=== PATIENT | female | born 1945 | race African-American/Black ===

== ENCOUNTER 2020-07-11 14:53 | Inpatient (IN) | payer MEDICARE, MEDICAID, OTHER ==
[~2020-07-11 14:53] MED LIST: Iopamidol-370 76% 500 ML 1 ML ONE
[2020-07-11] MEDS ORDERED: Ondansetron PF 4 MG/2 ML Vial ONE (15:01)
[2020-07-11] MEDS ORDERED: Haloperidol Lactate 5 MG/ML VIAL ONE (15:01)
--- NOTE | 2020-07-11 15:23 | CT ---
Exam: Head CT without contrast HISTORY: Level 2 stroke. Altered mental status. COMPARISON: 09/14/2013 FINDINGS: Hemorrhage: No intraparenchymal hemorrhage or extra-axial hematoma. Brain parenchyma: Cortical zhang-white matter differentiation is preserved. No mass effect or midline shift. Basilar cisterns are patent. Ventricular system: Ventricles and sulci are patent and symmetric. Calvarium: Intact. Sinuses and mastoid air cells: Adequate aeration. IMPRESSION: 1. No acute intracranial process 2. Results study discussed with Dr. Garcia 07/11/2020 3:19 PM Code CR
[2020-07-11 15:43] LABS: #Basophils 0.1 thou/uL (0.0-0.2); #Eosinphils 0.4 thou/uL (0.0-0.7); #Lymphocytes 3.2 thou/uL (1.20-3.40); #Monocytes 1.8 thou/uL (0.11-0.59); #Neutrophils 8.5 thou/uL (1.40-6.50); %Basophils 0.7 % (0.0-1.0); %Eosinophils 2.9 % (0.0-10.0); %Lymphocytes 22.7 % (21.0-51.0); %Neutrophils 60.6 % (42.0-75.0); Hemoglobin 10.5 g/dL (12.0-16.0); Mean Corpuscular HGB CONC 32.4 g/dL (32.0-36.0); Mean Corpuscular Hemoglobin 36.7 pg (27.0-31.0); Platelet Count 334 thou/uL (130-400); RBC Distribution Width 14.4 % (11.5-14.5); Red Blood Cell (RBC) Count 2.86 mill/uL (4.20-5.40); White Blood Cell (WBC) Count 14.1 thou/uL (4.8-10.8)
--- NOTE | 2020-07-11 15:54 | CT ---
CT arteriogram neck with IV contrast and 3-D imaging CT arteriogram head with IV contrast and 3-D imaging HISTORY: Altered mental status. FINDINGS: Contrast opacification of the aortic arch with bovine origin of the great vessels. Subclavi an arteries are patent. Good flow into each carotid system and the right vertebral artery. Left vertebral artery is not opacified, possibly chronic occlusion. There is calcification at each carotid bifurcation. Internal carotid arteries are patent. Incidental note of high-grade stenosis at the origin of the left external carotid artery. Each internal carotid artery is very tortuous. There is prominent calcification at each carotid sipho n intracranially with moderate to high-grade stenosis. Slight irregularity and slightly low grade stenosis of the right M1 segment. Cervical of [place] is intact. Persistent origin of the left posterior cerebral artery. Good dari w into each cerebral and cerebellar system. No enhancing brain lesions are evident. IMPRESSION : Atherosclerosis. No acute vascular abnormalities are demonstrated. 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 Incidental note of short segment high-grade stenosis at the origin of the left external carotid arter y.
[2020-07-11 16:10] LABS: Bacteria/HPF None Seen HPF (None Seen); Bilirubin Negative (Negative); Blood, Urine Trace (Negative); Clarity Clear (Clear); Glucose, Urine (Dipstick) Normal (Negative); Ketone, Urine Negative (Negative); Leukocyte Negative Leu/uL (Negative); Nitrite Negative (Negative); Protein, Urine (Dipstick) 50 mg/dL (Neg-Trace); RBC/HPF 0-3 HPF (0-3); Specific Gravity, Urine 1.009 (1.002-1.036); Urobilinogen Normal mg/dL (Less than 2); WBC/HPF 0-3 HPF (0-3)
[2020-07-11 16:18] LABS: INR-International Normal Ratio 1.1; PTT 29.2 sec (22.9-36.1); Prothrombin Time 14.1 sec (12.0-14.7)
[2020-07-11] MEDS ORDERED: Cefepime 2 GM VIAL ONE (16:21)
[2020-07-11] MEDS ORDERED: Sodium Chloride 0.9% 100 ML ONE (16:21)
[2020-07-11 16:23] LABS: MDiff Complete? YES; Macrocytosis SLIGHT = 6-15 cells (100X) (0-5/hpf); Platelet Morphology Comment Appears Adequate; Polychromasia SLIGHT = 2-3 cells (100X) (0-2/hpf); Target Cells SLIGHT = 2-5 cells (100X) (0-1/hpf)
[2020-07-11 16:27] LABS: ALT (SGPT) 14 U/L (8-55); AST (SGOT) 16 U/L (5-34); Albumin 3.9 g/dL (3.4-4.8); Alkaline Phosphatase 79 U/L (40-110); Anion Gap 24 mmol/L (10-20); BUN (Urea Nitrogen) 31 mg/dL (9.8-20.1); Bilirubin, Total 0.5 mg/dL (0.2-1.2); Calc. Creatinine Clearance 0 mL/min (70-130); Calcium 8.7 mg/dL (7.8-10.44); Carbon Dioxide 22 mmol/L (23-31); Chloride 91 mmol/L (98-107); Estimated GFR-MDRD 5; Globulin 3.7 g/dL (2.4-3.5); Glucose 131 mg/dL (83-110); Potassium 5.8 mmol/L (3.5-5.1); Protein, Total 7.6 g/dL (6.0-8.3); Sodium 131 mmol/L (136-145)
--- NOTE | 2020-07-11 16:42 | RAD ---
EXAM: CHEST ONE VIEW HISTORY: Altered mental status. Combative COMPARISON: 05/07/2019. FINDINGS: Cardiac silhouette is magnified by projection but does appear enlarged. There is increased bibasilar and perihilar airspace opacities which may reflect bilateral pneumonia or less likely asymmetric pulmonary edema. No pleural fluid is seen. Vascular calcifications are again seen in an ectatic thora cic aorta. IMPRESSION: Bilateral perihilar as well as bibasilar airspace opacities worrisome for bilateral pneumonia. Asymme tric pulmonary edema is a possibility. Follow-up to complete resolution is recommended.
[2020-07-11 16:51] LABS: CKMB 3.4 ng/mL (0-6.6)
[2020-07-11] MEDS ORDERED: Aspirin 300 MG Suppository ONE (17:38)
--- NOTE | 2020-07-11 17:45 | PDOC.HHP ---
Hospitalist HPI - History of Present Illness AMS History of Present Illness: This is a 75-year-old female patient with a history of hypertension, diabetes mellitus, ESRD on Friday schedule who presents today with altered mental status along with seizure-like activity. At the time of my assessment patient was outsidehistory was taken from her daughter who was at the bedside. Patient was in her usual state of health when a day ago she started complaining of headache. Headaches persisted till this morning when later in the morning she started behaving erratically and started having jerking movements that resembles generalized seizure. Behavior was erratic with confusion and EMS was activated leading to the ED visit. Due to agitation and also received Haldol, Ativan, and morphine making her drowsy. At presentation she was hypotensive with BP in the 1 9200s, tachypneic at 22 ho aths/min and tachycardic with heart rates between 99 and 104. Initial labs showed a leukocytosis of 14.1, hemoglobin 10.2, sodium 131, potassium 5.2 creatinine 8.26, BUN 31 with an anion gap of 18. Initial lactate was 3.4 with a repeat increasing to 4.8. Troponin was initially elevated at 0.035 with repeat troponin at 0.087. Imaging showed chest x-ray with bilateral perihilar as well as basilar airspace opacities worrisome for bilateral pneumonia. To rule out asymmetric edema. CT scan of the brain showed no acute intracranial events, CT angiogram [place] of [place] with contrast showed no acute vascular abnormalities however had chronic irritation of the left vertebral artery and incidental left external carotid artery segmental stenosis. She was started on vancomycin and cefepime. She also received a liter of normal saline. Hospitalist team was consulted for admission. Hospitalist ROS - Review of Systems ROS unobtainable: due to endotracheal tube Hospitalist History - Past Medical History Cardiac: reports: HTN Renal/: reports: Other (ESRD) Endocrine: reports: Diabetes - Past Surgical History Past Surgical History: reports: Cholecystectomy, - Family History Family History: reports: diabetes mellitus - Social History Smoking Status: Never smoker - Exam General - other findings: Patient in bed, in deep slumber Neck - other findings: VD, no neck stiffness Heart: no murmur, no gallops, no rubs Heart - other findings: Tachycardic Respiratory - other findings: Bilateral coarse breath sounds Gastrointestinal: soft, non-tender, non-distended, normal bowel sounds Extremities - other findings: Graft site not inflamed. Neurological - other findings: Patient drowsy. Pupils reactive bilaterally, moves all extremities Psychiatric - other findings: Patient drowsy but arousable Hospitalist Results - Labs Result Diagrams: 07/11/20 15:20 07/11/20 15:59 Lab results: WBC 14.1 thou/uL (4.8-10.8) H 07/11/20 15:20 Hgb 10.5 g/dL (12.0-16.0) L 07/11/20 15:20 Hct 32.5 % (36.0-47.0) L 07/11/20 15:20 MCV 113.0 fL (78.0-98.0) H 07/11/20 15:20 Plt Count 334 thou/uL (130-400) 07/11/20 15:20 Neutrophils % 60.6 % (42.0-75.0) 07/11/20 15:20 Sodium 131 mmol/L (136-145) L 07/11/20 15:59 Potassium 5.8 mmol/L (3.5-5.1) H 07/11/20 15:59 Chloride 91 mmol/L (98-107) L 07/11/20 15:59 Carbon Dioxide 22 mmol/L (23-31) L 07/11/20 15:59 BUN 31 mg/dL (9.8-20.1) H 07/11/20 15:59 Creatinine 8.26 mg/dL (0.6-1.1) H 07/11/20 15:59 Glucose 131 mg/dL (83-110) H 07/11/20 15:59 Lactic Acid 3.4 mmol/L (0.5-2.2) H 07/11/20 15:59 Calcium 8.7 mg/dL (7.8-10.44) 07/11/20 15:59 Total Bilirubin 0.5 mg/dL (0.2-1.2) 07/11/20 15:59 AST 16 U/L (5-34) 07/11/20 15:59 ALT 14 U/L (8-55) 07/11/20 15:59 Alkaline Phosphatase 79 U/L (40-110) 07/11/20 15:59 CK-MB (CK-2) 3.4 ng/mL (0-6.6) 07/11/20 15:59 Troponin I 0.035 ng/mL (< 0.028) H 07/11/20 15:59 Serum Total Protein 7.6 g/dL (6.0-8.3) 07/11/20 15:59 Albumin 3.9 g/dL (3.4-4.8) 07/11/20 15:59 Urine Ketones Negative mg/dL (Negative) 07/11/20 15:57 Urine Blood Trace (Negative) A 07/11/20 15:57 Urine Nitrite Negative (Negative) 07/11/20 15:57 Ur Leukocyte Esterase Negative Jeniffer/uL (Negative) 07/11/20 15:57 Urine RBC 0-3 HPF (0-3) 07/11/20 15:57 Urine WBC 0-3 HPF (0-3) 07/11/20 15:57 Ur Squamous Epith Cells 4-6 HPF (0-3) A 07/11/20 15:57 Urine Bacteria None Seen HPF (None Seen) 07/11/20 15:57 Hospitalist H&P A/P - Plan Plan: This is a 75-year-old female patient with a history of hypertension, diabetes mellitus, ESRD on dialysis who presents today with initial headaches and subsequent seizure-like activity and altered mental status. Currently being managed for sepsis and will be admitted to MICU for close observation. Severe sepsis Elevated lactate, leukocytosis, tachycardia, altered mental status Source being likely lungs however cannot rule out meningitisI have asked neck stiffness and obvious infiltrates in the lungs to explain his sepsis. She received a liter of normal saline Given the ESRD will limit fluid replacement as her blood pressures are also high in the 180 systolic. She received vancomycin and cefepime and also Levaquin. We will continue antibiotics on vancomycin and Zosyn with azithromycin for atypical organism coverage. Trend lactate Follow-up on culture Acute encephalopathy Likely related to sepsis/seizure Less likely meningitis however cannot be ruled out Currently, will monitor Neurology consulted Bilateral pneumonia Aspiration pneumonia/community-acquired pneumonia. Will provide vancomycin and Zosyn and azithromycin for now Reevaluate antibiotic coverage in a.m. Hypertensive urgency Receiving clonidine patch for now We will monitor blood pressure closely MICU Nephrology on board Elevated troponin Received aspirin 300 and nitroglycerin in ED Likely related to ESRD We will trend ESRD On Friday dialysis Nephrology consultedlikely dialysis in a.m. Left external carotid/vertebral artery occlusions Stable VT prophylaxisHeparin CODE STATUSfull code Dispositionpending improvement
[2020-07-11 18:34] LABS: SARS-CoV-2 NAA Rapid Test Not Detected (NotDetected)
[2020-07-11] MEDS ORDERED: Piperacillin/Tazobactam 4.5 GM in Sodium Chloride 0.9% 100 ML IVPB SCH (19:00)
[2020-07-11] MEDS ORDERED: Azithromycin 500 MG in Sodium Chloride 0.9% 250 ML 250 ML IVPB SCH (19:00)
[2020-07-11 19:44] LABS: Lactic Acid 4.8 mmol/L (0.5-2.2)
[2020-07-11 20:00] LABS: Troponin I 0.087 ng/mL (< 0.028)
[2020-07-11 20:35] LABS: Actual Bicarbonate (HCO3a) 22.6 mEq/L (22-28); Analyzer IN Cardio ER; Base Excess (BEa) -1.9 mEq/L (-2.0 to +3.0); CO2 Tension 37.8 mmHg (35.0-45.0); Calcium, Ionized (arterial) 1.02 mmol/L (1.12-1.30); Carboxyhemoglobin (COHb) 0.4 gm% (0.0-3.0); Hemoglobin (Hb) 10.9 g/dL (12.0-16.0); O2 Tension (PaO2), arterial 94.4 mmHg (> 70.0); Potassium - ABG Lab 6.62 mmol/L (3.70-5.30)
[2020-07-11 20:37] LABS: Puncture Site RRA
[2020-07-11] MEDS ORDERED: cloNIDine 0.1mg/24 Hour PATCH TD SCH (21:00)
[2020-07-11] MEDS ORDERED: Heparin 5,000 UNITS/ML VIAL SC SCH (21:00)
[2020-07-11] MEDS: Nitroglycerin 2% Ointment 1 INCH/1 GM Packet TOP SCH (21:55)
[2020-07-11 23:36] LABS: Troponin I 0.188 ng/mL (< 0.028)
[2020-07-12] MEDS ORDERED: HOLD VANCOMYCIN FOR LEVEL >20 FS SCH (00:45)
[2020-07-12] MEDS ORDERED: Vancomycin HCl 1.5 GM in Sodium Chloride 0.9% 250 ML 300 ML IVPB SCH (00:45)
[2020-07-12] MEDS ORDERED: Vancomycin 1 GM in Premix Bag 1 BAG IVPB SCH (00:45)
[2020-07-12] MEDS ORDERED: Vancomycin HCl 1.25 GM in Sodium Chloride 0.9% 250 ML 250 ML IVPB SCH ×2 (00:45→05:00)
[2020-07-12] MEDS ORDERED: Piperacillin/Tazobactam 1.125 GM, Admixture Fee 1 EACH in Sodium Chloride 0.9% 100 ML IVPB SCH (00:45)
[2020-07-12] MEDS ORDERED: Vancomycin HCl 750 MG in Sodium Chloride 0.9% 250 ML 250 ML IVPB SCH (00:45)
[2020-07-12 01:58] LABS: Hemoglobin 9.7 g/dL (12.0-16.0); Platelet Count 317 thou/uL (130-400)
[2020-07-12] MEDS: Heparin 10,000 UNITS/ 10 ML VIAL SLOW IVP SCH ×2 (02:38→18:12)
[2020-07-12] MEDS: Heparin 25,000 units/D5W 500 ML IVPB SCH (02:41)
[2020-07-12] MEDS ORDERED: Haloperidol Lactate 5 MG/ML VIAL ONE (05:16)
[2020-07-12] MEDS ORDERED: Haloperidol Lactate 5 MG/ML VIAL IM SCH (05:30)
[2020-07-12] MEDS ORDERED: Epoetin (ESRD) 20,000 UNITS/ML SC SCH (09:00)
[2020-07-12 09:15] LABS: PTT 127.6 sec (22.9-36.1)
[2020-07-12 09:19] LABS: Anion Gap 21 mmol/L (10-20); BUN (Urea Nitrogen) 39 mg/dL (9.8-20.1); Calc. Creatinine Clearance 9 mL/min (70-130); Carbon Dioxide 22 mmol/L (23-31); Chloride 97 mmol/L (98-107); Estimated GFR-MDRD 5; Glucose 106 mg/dL (83-110); Potassium 6.4 mmol/L (3.5-5.1); Sodium 134 mmol/L (136-145)
--- NOTE | 2020-07-12 09:56 | CON ---
DATE OF CONSULTATION: 07/12/20 HISTORY OF PRESENT ILLNESS: Ms. Magaña is a 75-year-old black female with ESRD from diabetic nephropathy, admitted for mental status change. It was felt that she may be septic. She was also noted to be having labile hypertension last night. For that reason, she was started on transdermal clonidine. CAT scan of the head did not show any acute intracranial abnormality and in addition CT angiogram of the [place] of [place] with contrast showed also no acute abnormality. This morning, patient is less confused. She is undergoing hemodialysis. We are following up this patient for her maintenance hemodialysis as well as management of her ESRD. REVIEW OF SYSTEMS: Positive for confusion? Of fever. No nausea. No vomiting. No diarrhea. No productive cough. No dysuria. No abdominal pain. Appetite and energy level is decreased. Occasional joint pains. No abdominal pain. No syncopal episode. MEDICATIONS: Currently on 1. Azithromycin 500 mg IV daily. 2. Clonidine patch TTS one daily. 3. Haloperidol 2 mg p.r.n. 4. Heparin drip. 5. Nitroglycerin 2 inches topical twice a day. 6. Zosyn 2.25 g IV q.12 hours, status post vancomycin. 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 PAST SURGICAL HISTORY: Status post AV fistula placement, status post open cholecystectomy, status post thyroidectomy, status post cuffed hemodialysis catheter placement. SOCIAL HISTORY: The patient lives in [place]. She lives with her daughter. 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 Smoked for 15 years, 2 packs a day. Quit 32 years ago. Status post blood transfusion. No drug abuse. Alcohol, none. Education, high school. ALLERGIES: CODEINE. TRAUMA: None. IMMUNIZATIONS: Up to date. HOSPITALIZATION: Please see past medical history. FAMILY HISTORY: No family history of ESRD. PHYSICAL EXAMINATION: VITAL SIGNS: Blood pressure is noted at 177/93, heart rate 104, respiratory rate 26, O2 saturation 100%, and temperature 98.4. GENERAL: The patient is awake, somewhat lethargic, but not in overt distress. SKIN: Adequate turgor. HEENT: She has slightly pale conjunctivae. Anicteric sclerae. NECK: No neck mass. No carotid bruits. No JVD. CHEST: No deformities. LUNGS: Clear breath sounds. No wheezing. No crackles. HEART: Normal sinus rhythm. No murmurs, gallops, or rubs. ABDOMEN: Globular, soft, nontender, no masses. EXTREMITIES: No edema, no deformities. LABORATORY DATA: July 12, 2020, hemoglobin 9.7, hematocrit 29.2. K - 6.4 July 11, 2020, white count 14.1, hemoglobin 10.5. July 11, 2020, sodium 131, potassium 5.8, chloride 91, carbon dioxide 22, BUN 31, creatinine 8.26, glucose 131, calcium 8.7. AST 16, ALT 14. Lactic acid 4.8. CT scan of the brain, no acute intracranial abnormality. July 11, 2020, chest x-ray shows bilateral perihilar airspace opacities suggestive of pneumonia. ASSESSMENT AND PLAN: 1. Sepsis/pneumonia-currently on empiric IV antibiotics. Continue supportive care. 2. July 11, 2020, urine C and S, no growth to date. 3. Endstage renal disease. Currently undergoing hemodialysis due to missed hemodialysis yesterday. We will be continuing current hemodialysis regimen with this patient on a Friday, Friday, and Friday dialysis schedule. Fluid removal only as tolerated by the patient. 4. Anemia. Start Epogen 7500 units subcu q. week. Agree with current management. 5. Hyperkalemia - hemodialysis today Job ID: [id number] MTDD
[2020-07-12] MEDS: Nitroglycerin 2% Ointment 1 INCH/1 GM Packet TOP SCH ×2 (10:54→20:50)
[2020-07-12] MEDS: Piperacillin/Tazobactam 2.25 GM in Sodium Chloride 0.9% 100 ML IVPB SCH ×2 (10:54→20:49)
[2020-07-12] MEDS ORDERED: EPOETIN ALFA-EPBX (ESRD) 4,000 UNIT/ML VIAL SC SCH (12:00)
[2020-07-12] MEDS: Acetaminophen 325 MG TAB PO PRN ×2 (12:17→21:30)
--- NOTE | 2020-07-12 13:13 | CON ---
NEUROLOGY CONSULTATION DATE OF CONSULTATION: 07/12/2020 REASON FOR CONSULTATION: Altered mental status. HISTORY OF PRESENT ILLNESS: Ms. Michelle Magaña is a 75-year-old female with history significant for hypertension, diabetes, end-stage renal disease on hemodialysis presented on 07/11/2020 with an episode of altered mental status with shaking and seizure-like activity, where the history is taken from the patient's daughter who is at the bedside. Per daughter, she was going to her regular appointment for dialysis and all of a sudden she complained of headache and then started behaving extremely confused and combative. She does have some generalized jerking movements of the extremities with no tongue bite or urinary incontinence. She became extremely combative and agitated and when the EMS arrived she was given Haldol, Ativan and morphine to make her drowsy to transfer her to the stretcher. She was also found to be hypertensive with systolic blood pressure in 200s and tachycardic. Head CT was done in the emergency room, which did not reveal any acute intracranial pathology. A CT angiogram did not reveal any hemodynamically significant stenosis. Chest x-ray shows bilateral perihilar as well as basilar opacity concern of pneumonia, so she was started on antibiotics and admitted for further evaluation. The daughter did not witness any focal weakness, focal paresthesias, nausea, vomiting, chest pain, abdominal pain, vertigo, dizziness, loss of vision or loss of consciousness associated with the episode. She has no history of seizures. No family history of seizures. She does have history of [place] 20 years ago REVIEW OF SYSTEMS:. All 14 systems were reviewed with the daughter and negative except the pertinent positive and negative mentioned in the HPI. PAST MEDICAL HISTORY: Hypertension, end-stage renal disease, diabetes mellitus. PAST SURGICAL HISTORY: Cholecystectomy, section. SOCIAL HISTORY: The patient denies smoking, alcohol, illegal drug use. PHYSICAL EXAMINATION: 148/84 18 20 GENERAL: NAD. NECK: Supple. CVS: Regular rate and rhythm. CHEST: Clear. ABDOMEN: Soft. NEUROLOGICAL: Mental status, the patient is alert and oriented to person and place. She is on dialysis. She is not oriented to the month and the year. Speech is clear. Motor, muscle, tone and bulk are normal. Moving all 4 extremities equally and symmetrically. Sensory withdraws to nailbed pressure bilaterally. Cerebellar did not cooperate with the testing. Gait deferred due to patient's safety reason. Cranial nerves II through XII intact. DATA REVIEWED: I reviewed the labs which were significant for white count of 14.1, and anemia with hemoglobin 10.5, hematocrit 32.5, and hyponatremia with sodium 131 and chronic renal insufficiency with BUN of 31 and creatinine of 8.26. Lab results: WBC 14.1 thou/uL (4.8-10.8) H 07/11/20 15:20 Hgb 10.5 g/dL (12.0-16.0) L 07/11/20 15:20 Hct 32.5 % (36.0-47.0) L 07/11/20 15:20 MCV 113.0 fL (78.0-98.0) H 07/11/20 15:20 Plt Count 334 thou/uL (130-400) 07/11/20 15:20 Neutrophils % 60.6 % (42.0-75.0) 07/11/20 15:20 Sodium 131 mmol/L (136-145) L 07/11/20 15:59 Potassium 5.8 mmol/L (3.5-5.1) H 07/11/20 15:59 Chloride 91 mmol/L (98-107) L 07/11/20 15:59 Carbon Dioxide 22 mmol/L (23-31) L 07/11/20 15:59 BUN 31 mg/dL (9.8-20.1) H 07/11/20 15:59 Creatinine 8.26 mg/dL (0.6-1.1) H 07/11/20 15:59 Glucose 131 mg/dL (83-110) H 07/11/20 15:59 Lactic Acid 3.4 mmol/L (0.5-2.2) H 07/11/20 15:59 Calcium 8.7 mg/dL (7.8-10.44) 07/11/20 15:59 Total Bilirubin 0.5 mg/dL (0.2-1.2) 07/11/20 15:59 AST 16 U/L (5-34) 07/11/20 15:59 ALT 14 U/L (8-55) 07/11/20 15:59 Alkaline Phosphatase 79 U/L (40-110) 07/11/20 15:59 CK-MB (CK-2) 3.4 ng/mL (0-6.6) 07/11/20 15:59 Troponin I 0.035 ng/mL (< 0.028) H 07/11/20 15:59 Serum Total Protein 7.6 g/dL (6.0-8.3) 07/11/20 15:59 Albumin 3.9 g/dL (3.4-4.8) 07/11/20 15:59 Urine Ketones Negative mg/dL (Negative) 07/11/20 15:57 Urine Blood Trace (Negative) A 07/11/20 15:57 Urine Nitrite Negative (Negative) 07/11/20 15:57 Ur Leukocyte Esterase Negative Jeniffer/uL (Negative) 07/11/20 15:57 Urine RBC 0-3 HPF (0-3) 07/11/20 15:57 Urine WBC 0-3 HPF (0-3) 07/11/20 15:57 Ur Squamous Epith Cells 4-6 HPF (0-3) A 07/11/20 15:57 Urine Bacteria None Seen HPF (None Seen) 07/11/20 15:57 IMAGING STUDIES: I reviewed the head CT, which was negative for acute intracranial pathology. I also reviewed the EEG, which was negative for underlying seizure activity. ASSESSMENT AND PLAN: Ms. Michelle Magaña is a 75-year-old female with history significant for hypertension, diabetes, end-stage renal disease, presented with intermittent headache and altered mental status. There is a concern about shaking, which looks like seizure-like activity, most likely a provoked seizure in the setting of infection. EEG was reviewed and was negative for seizure activity. A head CT did not reveal any acute intracranial process. Consider MRI of the brain to further evaluate for seizure focus. If above studies are negative, we will not start seizure medication based on above information. Neuro checks every 4 hours. Continue home medications. Continue medical management per primary team. Thank you for the consult. Job ID: [id number] MTDD
--- NOTE | 2020-07-12 13:58 | PDOC.HOSPP ---
- Subjective Encounter Date: 07/12/20 Encounter Time: 13:00 Subjective: Seen and examined in bed. She was noted to be quite combative overnight after ACT medications weaned. She got a repeat dose of Haldol and did restrained. Troponin trended upwards and she started on heparin drip She is having dialysis at the time of my evaluation. Also having EEG. She complains of headache, agitated and wants to be released from her restraints. - Objective Vital Signs & Weight: Vital Signs (12 hours) Temp Pulse Ox 07/12/20 08:00 98 07/12/20 07:35 98.4 F 07/12/20 04:00 99.8 F H Weight Admit Weight 227 lb Weight 227 lb 1 oz Most Recent Monitor Data Heart Rate from ECG 81 NIBP 146/84 NIBP BP-Mean 104 Respiration from ECG 16 SpO2 100 I&O: 07/11/20 07/12/20 07/13/20 06:59 06:59 06:59 Intake Total 170 Balance 170 Result Diagrams: 07/12/20 01:52 07/12/20 08:35 Additional Labs: Accuchecks 07/12/20 07/11/20 07/11/20 04:19 21:24 15:25 POC Glucose 105 H 105 H 105 H Hospitalist ROS - Medication Medications: Active Medications Generic Name Dose Route Start Last Admin Trade Name Freq PRN Reason Stop Dose Admin Acetaminophen 650 mg 07/12/20 11:15 07/12/20 12:17 Acetaminophen 325 Mg Tab PO 650 mg Q4H PRN Administration Headache/Fever or Pain Clonidine 0.1 mg 07/11/20 21:00 07/11/20 21:56 Clonidine 0.1mg/24 Hour Patch TD 0.1 mg Q7D BAL Administration Heparin Sodium (Porcine) 0 units 07/12/20 02:00 07/12/20 02:38 Heparin 10,000 Units/ 10 Ml Vial SLOW IVP 4,000 unit ASDIR BAL Administration Protocol Piperacillin Sod/Tazobactam 100 mls @ 200 mls/hr 07/12/20 09:00 07/12/20 10:54 Sod 2.25 gm/ Sodium Chloride IVPB 100 mls Q12HR BAL Administration Heparin Sodium/Dextrose 500 mls @ 0 mls/hr 07/12/20 02:00 07/12/20 02:41 Heparin 25,000 Units/D5w IVPB 500 mls INF BAL Administration Protocol Per Protocol Nitroglycerin 2 inch 07/11/20 21:00 07/12/20 10:54 Nitroglycerin 2% Ointment 1 Inch/1 Gm Packet TOP 2 inch BID BAL Administration - Exam General Appearance: ill appearing General - other findings: Ongoing dialysis and EEG. Heart - other findings: S1-S2 present and normal. No murmurs gallops or rubs. Respiratory - other findings: Coarse breath sounds bilaterally. Gastrointestinal - other findings: Full, soft, nontender bowel sounds present. Extremities - other findings: Trace edema bilaterally. Neurological: cranial nerve grossly intact, no focal deficits Psychiatric - other findings: Patient agitated Hosp A/P - Plan This is a 75-year-old female patient with a history of hypertension, diabetes mellitus, ESRD on dialysis who presents today with initial headaches and subsequent seizure-like activity and altered mental status. Currently being managed for sepsis and will be admitted to MICU for close observation. Severe sepsis Lactic acid elevated now back to within normal range. No growth on blood or urine cultures at the moment. We will continue V[place], Zosyn and azithromycin to cover respiratory source. Continue close monitoring. Follow-up on cultures Acute encephalopathy Likely related to sepsis/seizure Less likely meningitis however cannot be ruled out Currently, will monitor PRN Haldol Neurology consulted Bilateral pneumonia Aspiration pneumonia/community-acquired pneumonia. Will provide vancomycin and Zosyn and azithromycin for now Given possibility of edema we will hold repeat chest x-ray after dialysis Reevaluate antibiotic coverage in a.m. Hypertensive urgency Improved systolic currently between 146 and 172 Receiving clonidine patch for now We will monitor blood pressure closely MICU Nephrology on board Elevated troponin Received aspirin 300 and nitroglycerin in ED Likely related to ESRD We will trend ESRD Currently receiving dialysis. Nephrology following Left external carotid/vertebral artery occlusions Stable VT prophylaxisHeparin CODE STATUSfull code Dispositionpending improvement
--- NOTE | 2020-07-12 15:51 | CT ---
CT arteriogram neck with IV contrast and 3-D imaging CT arteriogram head with IV contrast and 3-D imaging HISTORY: Altered mental status. FINDINGS: Contrast opacification of the aortic arch with bovine origin of the great vessels. Subclavi an arteries are patent. Good flow into each carotid system and the right vertebral artery. Left vertebral artery is not opacified, possibly chronic occlusion. There is calcification at each carotid bifurcation. Internal carotid arteries are patent. Incidental note of high-grade stenosis at the origin of the left external carotid artery. Each internal carotid artery is very tortuous. There is prominent calcification at each carotid sipho n intracranially with moderate to high-grade stenosis. Slight irregularity and slightly low grade stenosis of the right M1 segment. Cervical of [place] is intact. Persistent origin of the left posterior cerebral artery. Good dari w into each cerebral and cerebellar system. No enhancing brain lesions are evident. IMPRESSION : Atherosclerosis. No acute vascular abnormalities are demonstrated. 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 Incidental note of short segment high-grade stenosis at the origin of the left external carotid arter y. Transcribed Date/Time: 07/12/2020 3:51 PM
[2020-07-12] MEDS: Azithromycin 500 MG in Sodium Chloride 0.9% 250 ML 250 ML IVPB SCH (18:13)
--- NOTE | 2020-07-12 19:15 | CON ---
DATE OF CONSULTATION: 07/12/2020 INDICATION FOR CONSULTATION: This is an elderly 75-year-old female, who has been seen by Dr. Doll in the past, but usually is followed by Dr. Jeancarlos Anglin in [place]. She apparently was admitted after some mental status changes. We were asked to see her due to her history of congestive heart failure in the past. At this time, she does not end-stage renal disease, for which she is on hemodialysis three times a week. She apparently had been complaining of a headache, but had no complaints of chest pain or significant shortness of breath. HISTORY OF PRESENT ILLNESS: This is a very pleasant 75-year-old female, as noted above had complained of some headaches yesterday and was supposed to see her cable worker helper yesterday, but her niece was taking her to the doctor when she started acting very strange, then the niece called the daughter and then she was taken home and when she arrived home, the daughter says she was even more confused and she had some hard time getting her out of the car and then she developed nausea and vomiting, but mainly was complaining of headache. EMS came and the patient was given some Haldol due to her agitation and confusion and was brought to the emergency room. Her blood pressure was significantly elevated in the 200s and she also was tachycardic. She did have a CT scan done, which did not show any significant abnormalities or anything acute apparently. At this time, she is somewhat sedated, and daughter is in the room and answers most of the questions, but otherwise there were no other significant abnormalities that had been noted. She denied any chest pain according to the daughter, had otherwise been doing relatively well. She lives with her older sister. The patient actually does some of her own cooking and cleaning the house and things on just normal routine daily living activities. Otherwise, she has not had any recent cardiac issues and the daughter is unaware of any recent echocardiogram, but I believe one may have been performed today. PAST MEDICAL HISTORY: Significant for end-stage renal disease. She has been previously diagnosed with diabetes, but the daughter says she is no longer a diabetic and blood sugars do not appear to be significantly elevated. She has had a cholecystectomy. She has history of lumpectomy of the left breast with radiation therapy. She has had a . She has had dialysis catheters placed. She has a history of systolic as well as diastolic heart failure, chronic anemia. She has degenerative joint disease, history of gout, dyslipidemia, and hypertension as well as hypothyroidism. ALLERGIES: SHE IS ALLERGIC TO HYDROCODONE. MEDICATIONS: Prior to admission included; 1. Norvasc 10 mg a day. 2. Levothyroxine. 3. Tramadol. 4. Losartan 25 mg a day. 5. Atorvastatin 20 mg a day. 6. Clonidine as needed, I believe she was taking 0.1 mg. 7. She is on Renvela 2.4 g three times a day. 8. Plavix 75 mg a day. 9. Ipratropium bromide nasal spray inhaler. 10. PhosLo one capsule daily 667 mg. FAMILY HISTORY: Noncontributory. SOCIAL HISTORY: As noted, there is no history of alcohol use. She did smoke, but stopped many many years ago. She lives with her sister. REVIEW OF SYSTEMS: According to the daughter, she mainly complains of the headache. She has had no recent pulmonary complaints. She did have some coughing however in the last few days, but she has had no other significant pulmonary complaints that the daughter is aware of. She had no nausea or vomiting until yesterday. She had some vomiting. She has had no hematemesis. She has had no significant urinary tract infections that the daughter is aware of and she has had no complaints of her extremities. PHYSICAL EXAMINATION: GENERAL: Reveals an elderly female, who appears to be somewhat sedated. She is minimally arousable. VITAL SIGNS: Blood pressure is 146/84, heart rates in the 80s and shows a sinus rhythm, blood pressure earlier was 172/72, respiratory rate about 16, O2 saturations 100%. She is afebrile. HEENT: Reveals the head to be normocephalic and atraumatic. Carotid pulses are present. I did not hear any significant bruits. CHEST: Clear to auscultation. I did not hear any rales, rhonchi, or wheezing. CARDIOVASCULAR: She has a regular rate and rhythm. She has systolic murmur at the upper sternal border and also at the apex, sounds most likely this is the mitral valve regurgitation and also some aortic valve sclerosis. ABDOMEN: Shows obesity with positive bowel sounds. No organomegaly or masses are noted. EXTREMITIES: Femoral pulses are present. She has bilateral femoral bruits. Popliteal and pedal pulses are difficult to palpate. I cannot palpate pedal pulses. SKIN: Warm and dry. NEUROLOGIC: As noted, she seems to be somewhat sedated. LABORATORY DATA: Sodium was 134, potassium was 6.4, this was at 8:00 this morning. Her BUN was 39 with a creatinine of 8.97. Lactic acid level was 4.8 on arrival, but now was down to 1.6, which has been repeated. Blood sugar is 105. Troponin-I is 0.188, which is increased from her admission which was increased up to 0.87 and the last one at 11:00 last night was 0.188. Her WBC is 14.1 with a hemoglobin of 9.7, hematocrit was 29.2, and platelet count was 317,000. The urinalysis does not show any evidence of significant urinary tract infection. Her EKG shows a sinus rhythm with T-wave inversions in the lateral leads 1, aVL, V5, and V6. There is no ST-segment elevation. Chest x-ray shows some possible bilateral pneumonias and some mild pulmonary edema. IMPRESSION: 1. Elderly female with history of congestive heart failure in the past. We will repeat an echocardiogram. We will evaluate the echocardiogram. She has most likely systolic as well as diastolic heart failure. She has been on medications. We will continue to monitor these. Based on the results of the echocardiogram, medications may need to be adjusted. 2. Mental status changes of uncertain etiology. This was associated with hypertension. The daughter did also say that she had an episode like this several years ago when either the blood pressure or blood sugar was high, but it was not as dramatic as it was yesterday and was only short-lived. 3. Diabetes, which will be dealt with by the primary care service. 4. History of hypertension. This will need to be addressed and we may need to increase or change her medications in order to lower the blood pressure, but at this time, her blood pressure is relatively stable, earlier it was 126/56 approximately 8:00 this morning and since that time it has gradually increased, it has gone up as high as 163/72, but it is back down to 155, now it is 146/84. 5. Hypercholesterolemia. She had been on statin medications in the past. We need to continue these medications. We would suggest we would continue these medications. We will be more than happy to continue to follow the patient with you. Further care of the patient will depend on the echocardiogram. She has undergone a cardiac catheterization in the past I believe, but according to what the family says, there has been no significant coronary artery disease found. Job ID: [id number]
--- NOTE | 2020-07-12 19:38 | MRI ---
MRI BRAIN NONCONTRAST: DATE: 07/12/20 HISTORY: 75-year-old female with seizure, altered mental status and generalized weakness. COMPARISON: 05/07/19 MRI from [facility]. FINDINGS: Comparison is difficult because of the current images are severely degraded by patient motion (perhap s the patient was having seizures while being scanned today). The least degraded sequence is the T1 w eighted sagittal images. It shows a partially empty sella. There is no mass effect, midline shift, re stricted diffusion, obstructive hydrocephalus or any large extra-axial fluid collection. The previous MRI showed moderate chronic ischemic white matter changes, and therefore, it is assumed that that is still the case. IMPRESSION: 1. Very limited study because of severe motion artifact. 2. No overt evidence of acute intracranial pathology. 3. Moderate chronic ischemic white matter changes. JN R POS: OFF
--- NOTE | 2020-07-12 22:36 | EEG ---
DATE OF SERVICE: 07/12/2020 ATTENDING PHYSICIAN: Valencia Sanabria MD This EEG was performed using 24-channel [employer] video digital EEG machine with 24-disk electrodes. This was an extended 2 hours 6 minutes of inpatient video EEG recording. Digital analysis of the EEG was done for spike and seizure detection, which revealed no abnormalities. BACKGROUND: There is a nonsustained posterior background rhythm of 7 to 8 Hz. Minimal reactivity is seen with eye opening and closure. HYPERVENTILATION: Not performed. PHOTIC STIMULATION: Bioccipital symmetric driving responses observed. SLEEP: Drowsiness and sleep are observed. EEG DIAGNOSES: 1. Occasional irregular theta activity seen during the recording. 2. Slow nonsustained posterior background rhythm. CLINICAL INTERPRETATION: This EEG is consistent with mild generalized nonspecific cerebral dysfunction. Job ID: [id number]
[2020-07-13 07:33] LABS: #Eosinphils 0.4 thou/uL (0.0-0.7); #Lymphocytes 1.3 thou/uL (1.20-3.40); #Monocytes 1.2 thou/uL (0.11-0.59); #Neutrophils 7.3 thou/uL (1.40-6.50); %Basophils 0.2 % (0.0-1.0); %Eosinophils 4.2 % (0.0-10.0); %Lymphocytes 12.4 % (21.0-51.0); %Monocytes 11.8 % (0.0-10.0); %Neutrophils 71.4 % (42.0-75.0); Hemoglobin 9.3 g/dL (12.0-16.0); Mean Corpuscular HGB CONC 32.6 g/dL (32.0-36.0); Mean Corpuscular Hemoglobin 36.3 pg (27.0-31.0); Mean Platelet Volume 7.1 fL (7.4-10.4); Platelet Count 290 thou/uL (130-400); RBC Distribution Width 14.2 % (11.5-14.5); Red Blood Cell (RBC) Count 2.57 mill/uL (4.20-5.40); White Blood Cell (WBC) Count 10.2 thou/uL (4.8-10.8)
[2020-07-13 07:51] LABS: Anion Gap 22 mmol/L (10-20); BUN (Urea Nitrogen) 26 mg/dL (9.8-20.1); Calc. Creatinine Clearance 10 mL/min (70-130); Calcium 8.5 mg/dL (7.8-10.44); Carbon Dioxide 23 mmol/L (23-31); Chloride 94 mmol/L (98-107); Estimated GFR-MDRD 6; Glucose 97 mg/dL (83-110); Potassium 5.3 mmol/L (3.5-5.1); Sodium 134 mmol/L (136-145)
[2020-07-13] MEDS: Acetaminophen 325 MG TAB PO PRN ×2 (09:11→14:38)
[2020-07-13] MEDS: Piperacillin/Tazobactam 2.25 GM in Sodium Chloride 0.9% 100 ML IVPB SCH ×2 (09:12→22:01)
[2020-07-13] MEDS: Heparin 10,000 UNITS/ 10 ML VIAL SLOW IVP SCH (09:12)
--- NOTE | 2020-07-13 09:45 | PRG ---
DATE OF SERVICE: 07/13/2020 SERVICE: Renal Medicine. SUBJECTIVE: Ms. Magaña is a 75-year-old black female, followed up by the Renal Service for ESRD, maintenance hemodialysis. She was initially admitted for sepsis/pneumonia. This morning, she is feeling better. She did undergo hemodialysis yesterday without any problem. The patient voices no new complaints. She still feels weak, but denies any chest pain or shortness of breath. OBJECTIVE: VITAL SIGNS: Blood pressure 153/63, heart rate 79, respiratory rate 21, O2 saturation 98%, and temperature 97.8. GENERAL: The patient is awake, comfortable, not in distress. SKIN: Adequate turgor. HEENT: She has slightly pale conjunctivae. Anicteric sclerae. No neck mass. No carotid bruits. No JVD. CHEST: No deformities. LUNGS: Decreased breath sounds. HEART: Normal sinus rhythm. No murmurs. No gallops. No rubs. ABDOMEN: Globular, soft, nontender. No masses. EXTREMITIES: No edema. No deformities. MEDICATIONS: July 13, 2020, were reviewed. LABORATORY DATA: July 13, 2020, white count 10.2, hemoglobin 9.3. Sodium 134, potassium 5.3, chloride 94, carbon dioxide 23, BUN 26, creatinine 7.58, glucose 97, calcium 8.5. ASSESSMENT AND PLAN: 1. Hyperkalemia, resolved with dialysis. 2. End-stage renal disease, stable. We will continue current Friday, Friday, and Friday hemodialysis. No indication for any emergent hemodialysis today. 3. Pneumonia, currently improved. On IV antibiotics. 4. Hypertension. Continue current antihypertensive regimen. We will recheck CBC and basic metabolic panel in a.m. Job ID: [id number]
[2020-07-13] MEDS: Heparin 25,000 units/D5W 500 ML IVPB SCH (10:10)
[2020-07-13] MEDS: Nitroglycerin 2% Ointment 1 INCH/1 GM Packet TOP SCH ×2 (10:31→22:03)
--- NOTE | 2020-07-13 15:04 | PDOC.NEUPN ---
- Subjective Encounter Date: 07/13/20 Subjective: Patient is alert and oriented x 3 today. EEG and MRI brain negative - Objective Vital Signs & Weight: Vital Signs (12 hours) Temp 07/13/20 11:15 98.2 F 07/13/20 07:55 97.8 F Weight Admit Weight 227 lb Weight 220 lb 9 oz Most Recent Monitor Data Heart Rate from ECG 70 NIBP 156/72 NIBP BP-Mean 100 Respiration from ECG 12 SpO2 100 I&O: 07/12/20 07/13/20 07/14/20 06:59 06:59 06:59 Intake Total 170 535 Output Total 3030 Balance 170 -2495 Result Diagrams: 07/13/20 07:26 07/13/20 07:26 Radiology Reviewed by me: Yes EKG Reviewed by me: Yes ROS - Review of Systems Constitutional: denies: fever, chills, sweats, weakness, malaise, other Eyes: denies: pain, vision change, conjunctivae inflammation, eyelid inflammation, redness, other ENT: denies: ear pain, ear discharge, nose pain, nose discharge, nose congestion, mouth pain, mouth swelling, throat pain, throat swelling, other Respiratory: denies: cough, dry, shortness of breath, hemoptysis, SOB with excertion, pleuritic pain, sputum, wheezing, other Cardiovascular: denies: no pertinent history, AFIB, CAD, CHF, HTN, VA, Syncope, Hyperlipidemia, Mitral valve stenosis, Aortic stenosis, Valve insufficiency, Pulmonary hypertension, Other Gastrointestinal: denies: nausea, vomiting, abdominal pain, diarrhea, constipation, melena, hematochezia, other Genitourinary: denies: dysuria, frequency, incontinence, hematuria, retention, other Musculoskeletal: denies: neck pain, shoulder pain, arm pain, back pain, hand pain, leg pain, foot pain, other Skin: denies: rash, lesions, jessenia, bruising, other Neurological: denies: weakness, numbness, incoordination, change in speech, confusion, seizures, other - Medication Medications: Active Medications Generic Name Dose Route Start Last Admin Trade Name Freq PRN Reason Stop Dose Admin Acetaminophen 650 mg 07/12/20 11:15 07/13/20 14:38 Acetaminophen 325 Mg Tab PO 650 mg Q4H PRN Administration Headache/Fever or Pain Clonidine 0.1 mg 07/11/20 21:00 07/11/20 21:56 Clonidine 0.1mg/24 Hour Patch TD 0.1 mg Q7D BAL Administration Epoetin Sy-epbx 7,500 unit 07/12/20 12:00 07/12/20 18:12 Epoetin Sy-Epbx (Esrd) 4,000 Unit/Ml Vial SC 7,500 unit Q7D BAL Administration Azithromycin 500 mg/ Sodium 250 mls @ 250 mls/hr 07/12/20 18:00 07/12/20 18:13 Chloride IVPB 250 mls 1800 BAL Administration Piperacillin Sod/Tazobactam 100 mls @ 200 mls/hr 07/12/20 09:00 07/13/20 09:12 Sod 2.25 gm/ Sodium Chloride IVPB 100 mls Q12HR BAL Administration Nitroglycerin 2 inch 07/11/20 21:00 07/13/20 10:31 Nitroglycerin 2% Ointment 1 Inch/1 Gm Packet TOP Not Given BID BAL - Exam General Appearance: awake alert Eye: PERRL ENT: normocephalic atraumatic Neck: supple Respiratory: CTAB Cardiovascular: RRR Gastrointestinal: soft Extremities: no cyanosis, no clubbing Skin: normal turgor, no lesions Neurological: CN's grossly intact, no focal deficits, no new deficit Musculoskeletal: normal tone, normal strength PSYCH: normal affect, normal behavior, A&O x 3 Results - Labs Result Diagrams: 07/13/20 07:26 07/13/20 07:26 Lab results: WBC 10.2 thou/uL (4.8-10.8) 07/13/20 07:26 Hgb 9.3 g/dL (12.0-16.0) L 07/13/20 07:26 Hct 28.6 % (36.0-47.0) L 07/13/20 07:26 MCV 111.0 fL (78.0-98.0) H 07/13/20 07:26 Plt Count 290 thou/uL (130-400) 07/13/20 07:26 Neutrophils % 71.4 % (42.0-75.0) 07/13/20 07:26 ABG pH 7.40 (7.35-7.45) 07/11/20 20:21 ABG pCO2 37.8 mmHg (35.0-45.0) 07/11/20 20:21 ABG pO2 94.4 mmHg (> 70.0) H 07/11/20 20:21 Sodium 134 mmol/L (136-145) L 07/13/20 07:26 Potassium 5.3 mmol/L (3.5-5.1) H 07/13/20 07:26 Chloride 94 mmol/L (98-107) L 07/13/20 07:26 Carbon Dioxide 23 mmol/L (23-31) 07/13/20 07:26 BUN 26 mg/dL (9.8-20.1) H 07/13/20 07:26 Creatinine 7.58 mg/dL (0.6-1.1) H 07/13/20 07:26 Glucose 97 mg/dL (83-110) 07/13/20 07:26 Lactic Acid 1.6 mmol/L (0.5-2.2) 07/12/20 01:31 Calcium 8.5 mg/dL (7.8-10.44) 07/13/20 07:26 Total Bilirubin 0.5 mg/dL (0.2-1.2) 07/11/20 15:59 AST 16 U/L (5-34) 07/11/20 15:59 ALT 14 U/L (8-55) 07/11/20 15:59 Alkaline Phosphatase 79 U/L (40-110) 07/11/20 15:59 CK-MB (CK-2) 3.4 ng/mL (0-6.6) 07/11/20 15:59 Troponin I 0.188 ng/mL (< 0.028) H 07/11/20 23:02 Serum Total Protein 7.6 g/dL (6.0-8.3) 07/11/20 15:59 Albumin 3.9 g/dL (3.4-4.8) 07/11/20 15:59 Urine Ketones Negative mg/dL (Negative) 07/11/20 15:57 Urine Blood Trace (Negative) A 07/11/20 15:57 Urine Nitrite Negative (Negative) 07/11/20 15:57 Ur Leukocyte Esterase Negative Jeniffer/uL (Negative) 07/11/20 15:57 Urine RBC 0-3 HPF (0-3) 07/11/20 15:57 Urine WBC 0-3 HPF (0-3) 07/11/20 15:57 Ur Squamous Epith Cells 4-6 HPF (0-3) A 07/11/20 15:57 Urine Bacteria None Seen HPF (None Seen) 07/11/20 15:57 - Radiology Interpretation MRI - head Status: image reviewed by me, report reviewed by me Additional Comment: negative for acute intracranial process PN A/P (1) AMS (altered mental status) Code(s): R41.82 - ALTERED MENTAL STATUS, UNSPECIFIED Status: Acute (2) Seizure-like activity Code(s): R56.9 - UNSPECIFIED CONVULSIONS Status: Acute (3) CHF exacerbation Code(s): I50.9 - HEART FAILURE, UNSPECIFIED Status: Acute - Plan Daily Plan: PT/OT, speech therapy, DVT proph w/SCDs 75 year old female with altered mental status and seizure like activity. Altered mental status seems multifactorial due to infectious or metabolic etiology. MRI Brain reviewed and was negative for acute intracranial process. EEG reviewed and was negative for seizure activity. Chest xray showed findings suspicious for pneumonia. No need for anticonvulsant since EEG and MRI Brain are negative. Continue home medications. Continue medical management per primary team. PT/OT/Speech. Plan discussed with the patient and the nursing staff.
--- NOTE | 2020-07-13 15:42 | PDOC.HOSPP ---
- Subjective Encounter Date: 07/13/20 Encounter Time: 15:41 Subjective: Patient was seen and examined in bed. She had made significant improvement overnight. She did pass some loose stools x3-4 She denies any cough, chest pain or shortness of breath - Objective Vital Signs & Weight: Vital Signs (12 hours) Temp 07/13/20 11:15 98.2 F 07/13/20 07:55 97.8 F Weight Admit Weight 227 lb Weight 220 lb 9 oz Most Recent Monitor Data Heart Rate from ECG 70 NIBP 156/72 NIBP BP-Mean 100 Respiration from ECG 12 SpO2 100 I&O: 07/12/20 07/13/20 07/14/20 06:59 06:59 06:59 Intake Total 170 535 Output Total 3030 Balance 170 -2495 Result Diagrams: 07/13/20 07:26 07/13/20 07:26 Hospitalist ROS - Medication Medications: Active Medications Generic Name Dose Route Start Last Admin Trade Name Freq PRN Reason Stop Dose Admin Acetaminophen 650 mg 07/12/20 11:15 07/13/20 14:38 Acetaminophen 325 Mg Tab PO 650 mg Q4H PRN Administration Headache/Fever or Pain Clonidine 0.1 mg 07/11/20 21:00 07/11/20 21:56 Clonidine 0.1mg/24 Hour Patch TD 0.1 mg Q7D BAL Administration Epoetin Sy-epbx 7,500 unit 07/12/20 12:00 07/12/20 18:12 Epoetin Sy-Epbx (Esrd) 4,000 Unit/Ml Vial SC 7,500 unit Q7D BAL Administration Azithromycin 500 mg/ Sodium 250 mls @ 250 mls/hr 07/12/20 18:00 07/12/20 18:13 Chloride IVPB 250 mls 1800 BAL Administration Piperacillin Sod/Tazobactam 100 mls @ 200 mls/hr 07/12/20 09:00 07/13/20 09:12 Sod 2.25 gm/ Sodium Chloride IVPB 100 mls Q12HR BAL Administration Nitroglycerin 2 inch 07/11/20 21:00 07/13/20 10:31 Nitroglycerin 2% Ointment 1 Inch/1 Gm Packet TOP Not Given BID BAL - Exam General - other findings: In bed, no acute distress. Heart: RRR, no murmur, no gallops, normal peripheral pulses Respiratory: no wheezes, no rales, no ronchi Gastrointestinal: soft, non-tender, non-distended, normal bowel sounds Extremities: no cyanosis, no clubbing, no edema Neurological: cranial nerve grossly intact, no weakness Psychiatric - other findings: Alert oriented x3. Occasional confusion. Hosp A/P - Plan This is a 75-year-old female patient with a history of hypertension, diabetes mellitus, ESRD on dialysis who presents today with initial headaches and subsequent seizure-like activity and altered mental status. Currently being managed for sepsis and will be admitted to MICU for close observation. She has made significant improvement and is currently AO x3 She has passed several loose stools and is been tested for C. difficile. Severe sepsis Significant improvement No growth on blood or urine cultures at the moment. We will continue Vanco, Zosyn and azithromycin to cover respiratory source. Continue close monitoring. Follow-up on cultures Acute encephalopathy Almost resolved. EEG, MRI negative Continue monitoring. Bilateral pneumonia We will continue Vanco Zosyn and azithromycin for now De-escalate to ceftriaxone and azithromycin tomorrow if things remain stable. Hypertensive urgency BP improved Continue monitoring Elevated troponin Cardiology evaluated EKG showed diastolic dysfunction Currently off anticoagulation Continue monitoring ESRD Currently receiving dialysis. Nephrology following Left external carotid/vertebral artery occlusions Stable VT prophylaxisHeparin CODE STATUSfull code Dispositionpending improvement
[2020-07-13] MEDS: Azithromycin 500 MG in Sodium Chloride 0.9% 250 ML 250 ML IVPB SCH (19:23)
[2020-07-14] MEDS ORDERED: Melatonin 3 MG TAB PO SCH ×2 (00:15→21:00)
[2020-07-14] MEDS: Acetaminophen 325 MG TAB PO PRN (00:16)
[2020-07-14 00:49] LABS: Hemoglobin 9.9 g/dL (12.0-16.0); Platelet Count 187 thou/uL (130-400)
[2020-07-14] MEDS ORDERED: Loperamide HCl 2 MG CAP PO PRN (02:36)
[2020-07-14 03:34] LABS: Anion Gap 21 mmol/L (10-20); BUN (Urea Nitrogen) 35 mg/dL (9.8-20.1); Calc. Creatinine Clearance 8 mL/min (70-130); Calcium 8.5 mg/dL (7.8-10.44); Carbon Dioxide 22 mmol/L (23-31); Chloride 92 mmol/L (98-107); Estimated GFR-MDRD 5; Glucose 75 mg/dL (83-110); Sodium 130 mmol/L (136-145)
[2020-07-14 03:46] LABS: Eosinophils 1 % (0-10); Hemoglobin 9.1 g/dL (12.0-16.0); Hypochromia SLIGHT = 6-15 cells (100X) (0-5/hpf); Lymphocytes 20 % (21-51); MDiff Complete? YES; Macrocytosis SLIGHT = 6-15 cells (100X) (0-5/hpf); Mean Corpuscular HGB CONC 33.6 g/dL (32.0-36.0); Mean Corpuscular Hemoglobin 36.9 pg (27.0-31.0); Mean Platelet Volume 7.8 fL (7.4-10.4); Metamyelocyte 1 % (0-0); Monocytes 16 % (0-10); Neutrophil 62 % (42-75); Platelet Count 305 thou/uL (130-400); Platelet Morphology Comment Appears Adequate; RBC Distribution Width 14.2 % (11.5-14.5); Red Blood Cell (RBC) Count 2.47 mill/uL (4.20-5.40); White Blood Cell (WBC) Count 8.9 thou/uL (4.8-10.8)
[2020-07-14] MEDS ORDERED: Ondansetron PF 4 MG/2 ML Vial IVP PRN (06:49)
[2020-07-14] MEDS: Piperacillin/Tazobactam 2.25 GM in Sodium Chloride 0.9% 100 ML IVPB SCH (08:04)
[2020-07-14] MEDS: Nitroglycerin 2% Ointment 1 INCH/1 GM Packet TOP SCH (08:22)
[2020-07-14] MEDS ORDERED: Saccharomyces boulardii 250 MG CAP PO SCH (09:00)
--- NOTE | 2020-07-14 09:13 | PRG ---
DATE OF SERVICE: 07/14/2020 SERVICE: Renal Medicine. SUBJECTIVE: Ms. Magaña is a 75-year-old black female with ESRD, who was admitted for pneumonia. We are following her up for management of her ESRD. She is tolerating hemodialysis. I have scheduled her today for regular hemodialysis session. The plan is to remove fluid only as tolerated. No other complaints. OBJECTIVE: VITAL SIGNS: Blood pressure 172/75, heart rate 65, respiratory rate 14, and temperature 97.7. GENERAL: The patient is awake, alert, comfortable, not in overt distress. SKIN: Adequate turgor. HEENT: She has slightly pale conjunctivae. Anicteric sclerae. NECK: No neck mass. No carotid bruits. No JVD. CHEST: No deformities. LUNGS: Decreased breath sounds. HEART: Normal sinus rhythm. No murmurs. No gallops. No rubs. ABDOMEN: Globular, soft, and nontender. No masses. EXTREMITIES: No edema. No deformities. MEDICATIONS: Of July 14, 2020, reviewed. LABORATORY DATA: Laboratories of July 14, 2020; white count 8.9, hemoglobin 9.1. Sodium 130, potassium 5, chloride 92, carbon dioxide 22, BUN 35, creatinine 9.29, glucose 75, and calcium is 8.5. ASSESSMENT AND PLAN: 1. Anemia - continuing weekly Epogen. P.r.n. blood transfusion for hemoglobin less than 7. 2. End-stage renal disease, stable, tolerating current hemodialysis regimen. No changes will be made with her dialysis regimen. Fluid removal as tolerated. 3. Pneumonia, clinically improving. Continue IV antibiotics. Job ID: [id number]
[2020-07-14 11:00] LABS: HBSAg Index 0.25 S/CO (0-0.99); Hep B Surf Ag Non-Reactive S/CO (NonReactive)
[2020-07-14 12:28] VITALS: BMI 35.6
[2020-07-14 15:37] VITALS: TEMP 98.6
--- NOTE | 2020-07-17 12:56 | DIS ---
DATE OF ADMISSION: 07/11/2020 DATE OF DISCHARGE: 07/14/2020 DISCHARGE DIAGNOSES: 1. Severe sepsis. 2. Acute encephalopathy. 3. Bilateral pneumonia. 4. Elevated troponin. 5. ESRD. 6. External iliac artery/vertebral artery occlusion. BRIEF HOSPITAL COURSE: This is a 75-year-old female patient with history of hypertension, diabetes mellitus, ESRD on dialysis, who presented on the day of admission with a headache and subsequent erratic behavior with seizure-like activity. She was brought in by EMS and was managed initially as sepsis. CT scan of her head showed no acute event. The patient was admitted to MICU for antibiotic therapy and close monitoring. Nephrology was consulted to monitor ESRD. She had mildly elevated troponin on presentation which was concerning for possible NSTEMI. Cardiology was consulted and NSTEMI was ruled out. An echocardiogram revealed no acute abnormalities. She received antibiotics and hemodialysis, and also had neurological consult on account of her seizure-like activity with EEG showing no seizure activity. After two days, the patient was completely back to baseline, she was out of bed and had completed three days of antibiotics. She was discharged to complete antibiotics on outpatient basis and to followup with Nephrology. DISCHARGE PHYSICAL EXAMINATION: GENERAL: The patient is sitting up in bed, in no acute distress. RESPIRATORY SYSTEM: Air entry adequate bilaterally. No wheezing, rhonchi, or rales. CARDIOVASCULAR SYSTEM: S1 and S2 present. No murmurs, gallops, or rubs. ABDOMEN: soft, nontender. Bowel sounds present and normal. EXTREMITIES: No edema noted. DISCHARGE MEDICATIONS: 1. Doxycycline 100 mg q.24 for 2 days. 2. Omnicef 200 mg b.i.d. times 3 days. Home medications to be continued. DISCHARGE CONDITION: Stable. Job ID: [id number]
--- NOTE | 2020-07-18 16:23 | EKG ---
Test Reason : Blood Pressure : / mmHG Vent. Rate : 104 BPM Atrial Rate : 104 BPM P-R Int : 166 ms QRS Dur : 106 ms QT Int : 350 ms P-R-T Axes : 063 -17 136 degrees QTc Int : 460 ms Sinus tachycardia Possible Left atrial enlargement Left ventricular hypertrophy Cannot rule out Septal infarct , age undetermined T wave abnormality, consider lateral ischemia Abnormal ECG Confirmed by MIKE PEGUERO DO ([id number]), editorial clerk CHARITY REBOLLEDO ([id number]) on 07/18/2020 4:22:31 PM Referred By: Confirmed By:MIKE PEGUERO DO
== END 2020-07-14 16:46 | disposition home or self-care (01) | DRG 871 ==
LOC: ERS 14:53 → IMCU/EMU 17:04
PROVIDERS: ADMIT Student in an Organized Health Care Education/Training Program; ATTEND Student in an Organized Health Care Education/Training Program
PROC: 5A1D70Z Performance of Urinary Filtration, Intermittent, Less than 6 Hours Per Day (ICD-10-PCS; principal; 2020-07-14)
DX: A41.9 Sepsis, unspecified organism (principal); N18.6 End stage renal disease; J18.9 Pneumonia, unspecified organism; I50.43 Acute on chronic combined systolic (congestive) and diastolic (congestive) heart failure; G93.49 Other encephalopathy; I13.2 Hypertensive heart and chronic kidney disease with heart failure and with stage 5 chronic kidney disease, or end stage renal disease; Z20.828 Contact with and (suspected) exposure to other viral communicable diseases; R65.20 Severe sepsis without septic shock; I16.0 Hypertensive urgency; E11.22 Type 2 diabetes mellitus with diabetic chronic kidney disease; R56.9 Unspecified convulsions; R79.89 Other specified abnormal findings of blood chemistry; I65.22 Occlusion and stenosis of left carotid artery; I65.02 Occlusion and stenosis of left vertebral artery; E78.5 Hyperlipidemia, unspecified; E87.5 Hyperkalemia; D64.9 Anemia, unspecified; M10.9 Gout, unspecified; Z99.2 Dependence on renal dialysis; Z90.49 Acquired absence of other specified parts of digestive tract; Z85.3 Personal history of malignant neoplasm of breast; Z87.891 Personal history of nicotine dependence; Z88.5 Allergy status to narcotic agent
CPT/HCPCS: 36415; 36416; 70450; 70496; 70498; 70551; 71045; 80048; 80053; 80202; 81003; 81015; 82553; 82805; 83605; 84484; 85014; 85018; 85025; 85049; 85610; 85730; 87040; 87086; 87324; 87340; 87449; 90935; 93005; 93306; 95712; 95816; 95819; G0257; J0456; J0692; J1630; J1644; J1956; J2405; J2543; J3370; J3490; J7030; J7050; Q5105; Q9967; U0002

== ENCOUNTER 2021-12-27 15:05 | Emergency (ER) | payer MEDICARE, MEDICAID ==
[2021-12-27 16:19] LABS: ALT (SGPT) 7 U/L (8-55); AST (SGOT) 13 U/L (5-34); Alkaline Phosphatase 85 U/L (40-110); Anion Gap 22 mmol/L (10-20); BUN (Urea Nitrogen) 27 mg/dL (9.8-20.1); Bilirubin, Total 0.8 mg/dL (0.2-1.2); Calc. Creatinine Clearance 0 mL/min (70-130); Calcium 9.9 mg/dL (7.8-10.44); Carbon Dioxide 24 mmol/L (23-31); Chloride 99 mmol/L (98-107); Globulin 4.1 g/dL (2.4-3.5); Glucose 89 mg/dL (83-110); Potassium 4.6 mmol/L (3.5-5.1); Protein, Total 8.1 g/dL (5.8-8.1); Sodium 140 mmol/L (136-145)
[2021-12-27 16:21] LABS: #Eosinphils 0.3 thou/uL (0.0-0.7); #Lymphocytes 1.5 thou/uL (1.20-3.40); #Monocytes 0.9 thou/uL (0.11-0.59); %Basophils 0.2 % (0.0-1.0); %Lymphocytes 22.6 % (21.0-51.0); %Monocytes 13.2 % (0.0-10.0); Hemoglobin 8.4 g/dL (12.0-16.0); Mean Corpuscular HGB CONC 31.2 g/dL (32.0-36.0); Mean Corpuscular Hemoglobin 38.3 pg (27.0-31.0); Mean Platelet Volume 7.5 fL (7.4-10.4); Platelet Count 291 thou/uL (130-400); RBC Distribution Width 14.5 % (11.5-14.5); Red Blood Cell (RBC) Count 2.21 mill/uL (4.20-5.40); White Blood Cell (WBC) Count 6.7 thou/uL (4.8-10.8)
[2021-12-27 16:49] LABS: MDiff Complete? YES; Macrocytosis MODERATE=16-30 cells (100X) (0-5/hpf); Platelet Morphology Comment Appears Adequate; Polychromasia SLIGHT = 2-3 cells (100X) (0-2/hpf)
== END 2021-12-27 20:25 | disposition home or self-care (01) ==
LOC: ERS 15:05
DX: E11.22 Type 2 diabetes mellitus with diabetic chronic kidney disease (principal); I13.2 Hypertensive heart and chronic kidney disease with heart failure and with stage 5 chronic kidney disease, or end stage renal disease; I50.9 Heart failure, unspecified; N18.6 End stage renal disease; E78.5 Hyperlipidemia, unspecified; D63.1 Anemia in chronic kidney disease; J45.909 Unspecified asthma, uncomplicated; Z87.891 Personal history of nicotine dependence; Z99.2 Dependence on renal dialysis
CPT/HCPCS: 36430; 80053; 85025; 86850; 86900; 86901; 86920; 86922; 99284; P9016; 36415

== ENCOUNTER 2022-03-24 05:51 | Emergency (ER) | payer MEDICARE, MEDICAID ==
[2022-03-24] MEDS ORDERED: Acetaminophen 500 MG TAB ONE (06:52)
[2022-03-24 06:56] LABS: #Eosinphils 0.3 thou/uL (0.0-0.7); #Lymphocytes 1.2 thou/uL (1.20-3.40); #Monocytes 0.7 thou/uL (0.11-0.59); #Neutrophils 5.3 thou/uL (1.40-6.50); %Basophils 0.4 % (0.0-1.0); %Eosinophils 3.8 % (0.0-10.0); %Lymphocytes 15.7 % (21.0-51.0); %Monocytes 9.2 % (0.0-10.0); %Neutrophils 70.9 % (42.0-75.0); Hemoglobin 9.3 g/dL (12.0-16.0); Mean Corpuscular HGB CONC 31.2 g/dL (32.0-36.0); Mean Corpuscular Hemoglobin 36.6 pg (27.0-31.0); Mean Platelet Volume 7.9 fL (7.4-10.4); Platelet Count 267 thou/uL (130-400); RBC Distribution Width 17.8 % (11.5-14.5); Red Blood Cell (RBC) Count 2.52 mill/uL (4.20-5.40); White Blood Cell (WBC) Count 7.5 thou/uL (4.8-10.8)
[2022-03-24 07:17] LABS: ALT (SGPT) 8 U/L (8-55); AST (SGOT) 9 U/L (5-34); Albumin 3.8 g/dL (3.4-4.8); Alkaline Phosphatase 84 U/L (40-110); Anion Gap 18 mmol/L (10-20); BUN (Urea Nitrogen) 34 mg/dL (9.8-20.1); Bilirubin, Total 0.5 mg/dL (0.2-1.2); Calc. Creatinine Clearance 0 mL/min (70-130); Calcium 9.9 mg/dL (7.8-10.44); Carbon Dioxide 24 mmol/L (23-31); Chloride 100 mmol/L (98-107); Globulin 3.7 g/dL (2.4-3.5); Glucose 158 mg/dL (83-110); Potassium 4.3 mmol/L (3.5-5.1); Protein, Total 7.5 g/dL (5.8-8.1); Sodium 138 mmol/L (136-145)
[2022-03-24] MEDS ORDERED: Nitroglycerin 2% Ointment 1 INCH/1 GM Packet ONE (07:27)
[2022-03-24 07:36] LABS: CKMB 3.3 ng/mL (0-6.6)
[2022-03-24 10:08] LABS: Critical Call Chem Troponin I @PT GONE TO CS
[2022-03-24 10:09] LABS: Troponin I 1.994 ng/mL (< 0.028)
== END 2022-03-24 09:48 | disposition short-term general hospital (02) ==
LOC: ERS 05:51
DX: R07.2 Precordial pain (principal); R77.8 Other specified abnormalities of plasma proteins; I13.2 Hypertensive heart and chronic kidney disease with heart failure and with stage 5 chronic kidney disease, or end stage renal disease; I50.9 Heart failure, unspecified; N18.6 End stage renal disease; Z85.3 Personal history of malignant neoplasm of breast; E11.22 Type 2 diabetes mellitus with diabetic chronic kidney disease; J45.909 Unspecified asthma, uncomplicated; Z87.891 Personal history of nicotine dependence; Z79.82 Long term (current) use of aspirin; Z79.01 Long term (current) use of anticoagulants; Z79.899 Other long term (current) drug therapy; Z99.2 Dependence on renal dialysis
CPT/HCPCS: 36415; 71045; 80053; 82553; 83735; 84484; 85025; 93005

== ENCOUNTER 2022-04-22 05:30 | Emergency (ER) | payer MEDICARE, MEDICAID ==
[2022-04-22 06:30] LABS: #Eosinphils 0.3 thou/uL (0.0-0.7); #Lymphocytes 1.1 thou/uL (1.20-3.40); #Monocytes 0.5 thou/uL (0.11-0.59); #Neutrophils 8.1 thou/uL (1.40-6.50); %Basophils 0.2 % (0.0-1.0); %Lymphocytes 10.8 % (21.0-51.0); %Monocytes 5.1 % (0.0-10.0); %Neutrophils 80.8 % (42.0-75.0); Hemoglobin 7.8 g/dL (12.0-16.0); Mean Corpuscular HGB CONC 30.9 g/dL (32.0-36.0); Mean Corpuscular Hemoglobin 36.6 pg (27.0-31.0); Mean Platelet Volume 7.8 fL (7.4-10.4); Platelet Count 286 thou/uL (130-400); RBC Distribution Width 16.5 % (11.5-14.5); Red Blood Cell (RBC) Count 2.13 mill/uL (4.20-5.40)
[2022-04-22] MEDS ORDERED: Ondansetron PF 4 MG/2 ML Vial ONE (06:48)
[2022-04-22 06:50] LABS: ALT (SGPT) 9 U/L (8-55); AST (SGOT) 9 U/L (5-34); Albumin 3.8 g/dL (3.4-4.8); Alkaline Phosphatase 95 U/L (40-110); Anion Gap 22 mmol/L (10-20); BUN (Urea Nitrogen) 43 mg/dL (9.8-20.1); Bilirubin, Total 0.6 mg/dL (0.2-1.2); Calc. Creatinine Clearance 0 mL/min (70-130); Calcium 9.6 mg/dL (7.8-10.44); Carbon Dioxide 24 mmol/L (23-31); Chloride 98 mmol/L (98-107); Estimated GFR 5; Globulin 3.4 g/dL (2.4-3.5); Glucose 229 mg/dL (83-110); Potassium 4.7 mmol/L (3.5-5.1); Protein, Total 7.2 g/dL (5.8-8.1); Sodium 139 mmol/L (136-145)
[2022-04-22 07:12] LABS: CKMB 1.8 ng/mL (0-6.6)
[2022-04-22] MEDS ORDERED: Aspirin Chewable 81 MG TAB ONE (07:33)
[2022-04-22 08:04] LABS: SARS-CoV-2 NAA Rapid Test Not Detected (NotDetected)
== END 2022-04-22 08:54 | disposition short-term general hospital (02) ==
LOC: ERS 05:30
DX: J81.1 Chronic pulmonary edema (principal); R07.89 Other chest pain; I44.7 Left bundle-branch block, unspecified; I13.2 Hypertensive heart and chronic kidney disease with heart failure and with stage 5 chronic kidney disease, or end stage renal disease; E11.22 Type 2 diabetes mellitus with diabetic chronic kidney disease; N18.6 End stage renal disease; I50.9 Heart failure, unspecified; E78.5 Hyperlipidemia, unspecified; J45.909 Unspecified asthma, uncomplicated; Z20.822 Contact with and (suspected) exposure to COVID-19; Z99.2 Dependence on renal dialysis; Z85.3 Personal history of malignant neoplasm of breast; Z87.891 Personal history of nicotine dependence; Z79.82 Long term (current) use of aspirin; Z79.899 Other long term (current) drug therapy
CPT/HCPCS: 36416; 71045; 80053; 82553; 83880; 84484; 85025; 93005; 94640; J2405; J7620; U0002

== ENCOUNTER 2022-06-26 10:12 | Day surgery (SDC) | payer MEDICARE, MEDICAID ==
[2022-06-26 17:23] VITALS: BP 150/66; TEMP 97.3
== END 2022-06-26 18:49 | disposition home or self-care (01) ==
LOC: ONC/OP 10:12
PROVIDERS: ATTEND Internal Medicine Nephrology
PROC: 30233R1 Transfusion of Nonautologous Platelets into Peripheral Vein, Percutaneous Approach (ICD-10-PCS; principal; 2022-06-26)
DX: E11.22 Type 2 diabetes mellitus with diabetic chronic kidney disease (principal); N18.9 Chronic kidney disease, unspecified; D63.1 Anemia in chronic kidney disease; Z88.5 Allergy status to narcotic agent; Z88.8 Allergy status to other drugs, medicaments and biological substances
CPT/HCPCS: 36430; 86850; 86870; 86880; 86900; 86901; 86922; P9016

== ENCOUNTER 2022-07-08 05:26 | Emergency (ER) | payer MEDICARE, MEDICAID ==
[2022-07-08] MEDS ORDERED: Dicyclomine 20 MG TAB ONE (06:11)
[2022-07-08] MEDS ORDERED: Mag-Al 1200 mg/1200 mg/30 ML UDCUP ONE (06:11)
[2022-07-08] MEDS ORDERED: Famotidine 20 MG TAB ONE (06:11)
[2022-07-08] MEDS ORDERED: Lidocaine Viscous Sol 2% 15 ml UD Cup ONE (06:11)
[2022-07-08 06:28] LABS: #Basophils 0.1 thou/uL (0.0-0.2); #Eosinphils 0.3 thou/uL (0.0-0.7); #Lymphocytes 1.2 thou/uL (1.20-3.40); #Monocytes 0.7 thou/uL (0.11-0.59); #Neutrophils 6.4 thou/uL (1.40-6.50); %Basophils 0.6 % (0.0-1.0); %Eosinophils 3.1 % (0.0-10.0); %Lymphocytes 14.1 % (21.0-51.0); %Monocytes 7.6 % (0.0-10.0); %Neutrophils 74.5 % (42.0-75.0); Hemoglobin 9.3 g/dL (12.0-16.0); Mean Corpuscular HGB CONC 32.1 g/dL (32.0-36.0); Mean Corpuscular Hemoglobin 38.9 pg (27.0-31.0); Mean Platelet Volume 7.7 fL (7.4-10.4); Platelet Count 253 thou/uL (130-400); RBC Distribution Width 17.4 % (11.5-14.5); Red Blood Cell (RBC) Count 2.39 mill/uL (4.20-5.40); White Blood Cell (WBC) Count 8.6 thou/uL (4.8-10.8)
[2022-07-08 06:53] LABS: ALT (SGPT) 8 U/L (8-55); AST (SGOT) 12 U/L (5-34); Alkaline Phosphatase 104 U/L (40-110); Anion Gap 19 mmol/L (10-20); BUN (Urea Nitrogen) 53 mg/dL (9.8-20.1); Bilirubin, Total 0.7 mg/dL (0.2-1.2); Calc. Creatinine Clearance 0 mL/min (70-130); Calcium 9.6 mg/dL (7.8-10.44); Carbon Dioxide 23 mmol/L (23-31); Chloride 99 mmol/L (98-107); Estimated GFR 5; Globulin 3.7 g/dL (2.4-3.5); Glucose 128 mg/dL (83-110); Lipase 49 U/L (8-78); Potassium 4.6 mmol/L (3.5-5.1); Protein, Total 7.7 g/dL (5.8-8.1); Sodium 136 mmol/L (136-145)
== END 2022-07-08 07:58 | disposition home or self-care (01) ==
LOC: ERS 05:26
DX: K29.70 Gastritis, unspecified, without bleeding (principal); I13.2 Hypertensive heart and chronic kidney disease with heart failure and with stage 5 chronic kidney disease, or end stage renal disease; E11.22 Type 2 diabetes mellitus with diabetic chronic kidney disease; N18.6 End stage renal disease; I50.9 Heart failure, unspecified; Z87.891 Personal history of nicotine dependence; Z99.2 Dependence on renal dialysis
CPT/HCPCS: 36415; 80053; 83690; 85025; 99284

== ENCOUNTER 2022-10-25 11:27 | Emergency (ER) | payer MEDICARE, MEDICAID ==
[2022-10-25 12:49] LABS: Hemoglobin 9.2 g/dL (12.0-16.0); Mean Corpuscular Hemoglobin 36.1 pg (27.0-31.0); Platelet Count 249 10x3/uL (130-400); RBC Distribution Width 21.7 % (11.5-14.5); Red Blood Cell (RBC) Count 2.54 mill/uL (4.20-5.40)
[2022-10-25 13:02] LABS: ALT (SGPT) 9 U/L (8-55); AST (SGOT) 17 U/L (5-34); Albumin 3.7 g/dL (3.4-4.8); Alkaline Phosphatase 104 U/L (40-110); Anion Gap 18 mmol/L (10-20); BUN (Urea Nitrogen) 16 mg/dL (9.8-20.1); Calc. Creatinine Clearance 0 mL/min (70-130); Calcium 9.6 mg/dL (7.8-10.44); Carbon Dioxide 23 mmol/L (23-31); Chloride 101 mmol/L (98-107); Estimated GFR 13; Globulin 4.1 g/dL (2.4-3.5); Glucose 77 mg/dL (83-110); Potassium 3.8 mmol/L (3.5-5.1); Protein, Total 7.8 g/dL (5.8-8.1); Sodium 138 mmol/L (136-145)
[2022-10-25] MEDS ORDERED: Lidocaine 1% w/Epinephrine 1:100K 20 ML VIAL ONE (13:14)
[2022-10-25 13:19] LABS: Anisocytosis SLIGHT = 6-15 cells (100X) (0-5/hpf); Eosinophils 2 % (0-10); Lymphocytes 24 % (21-51); MDiff Complete? YES; Monocytes 11 % (0-10); Neutrophil 63 % (42-75); Platelet Morphology Comment Appears Adequate; Polychromasia SLIGHT = 2-3 cells (100X) (0-2/hpf); Schistocytes SLIGHT = 2-5 cells (100X) (0-1/hpf)
== END 2022-10-25 14:34 | disposition home or self-care (01) ==
LOC: ERS 11:27
DX: T82.838A Hemorrhage due to vascular prosthetic devices, implants and grafts, initial encounter (principal); I13.2 Hypertensive heart and chronic kidney disease with heart failure and with stage 5 chronic kidney disease, or end stage renal disease; N18.6 End stage renal disease; I50.9 Heart failure, unspecified; E78.5 Hyperlipidemia, unspecified; Z87.891 Personal history of nicotine dependence
CPT/HCPCS: 36415; 80053; 85025; 93005

== ENCOUNTER 2022-11-08 11:33 | Emergency (ER) | payer MEDICARE, MEDICAID ==
[2022-11-08 12:55] LABS: #Eosinphils 0.1 thou/uL (0.0-0.7); #Lymphocytes 0.7 thou/uL (1.20-3.40); #Monocytes 0.7 thou/uL (0.11-0.59); #Neutrophils 4.3 thou/uL (1.40-6.50); %Basophils 0.4 % (0.0-1.0); %Eosinophils 1.9 % (0.0-10.0); %Lymphocytes 11.3 % (21.0-51.0); %Monocytes 12.4 % (0.0-10.0); %Neutrophils 73.9 % (42.0-75.0); Hemoglobin 6.1 g/dL (12.0-16.0); Mean Corpuscular HGB CONC 32.9 g/dL (32.0-36.0); Mean Corpuscular Hemoglobin 39.8 pg (27.0-31.0); Mean Platelet Volume 7.9 fL (7.4-10.4); Platelet Count 199 10x3/uL (130-400); RBC Distribution Width 23.7 % (11.5-14.5); Red Blood Cell (RBC) Count 1.53 mill/uL (4.20-5.40); White Blood Cell (WBC) Count 5.9 10x3/uL (4.8-10.8)
[2022-11-08 13:13] LABS: ALT (SGPT) 12 U/L (8-55); AST (SGOT) 19 U/L (5-34); Albumin 3.3 g/dL (3.4-4.8); Alkaline Phosphatase 89 U/L (40-110); Anion Gap 16 mmol/L (10-20); BUN (Urea Nitrogen) 12 mg/dL (9.8-20.1); Bilirubin, Total 0.7 mg/dL (0.2-1.2); CK (CPK) 66 U/L (29-168); Calc. Creatinine Clearance 0 mL/min (70-130); Calcium 9.4 mg/dL (7.8-10.44); Carbon Dioxide 27 mmol/L (23-31); Chloride 101 mmol/L (98-107); Estimated GFR 22; Globulin 3.6 g/dL (2.4-3.5); Glucose 145 mg/dL (83-110); Magnesium 1.9 mg/dL (1.6-2.6); Potassium 3.2 mmol/L (3.5-5.1); Protein, Total 6.9 g/dL (5.8-8.1); Sodium 141 mmol/L (136-145)
== END 2022-11-08 19:00 | disposition home or self-care (01) ==
LOC: ERS 11:33
DX: D64.9 Anemia, unspecified (principal); I13.2 Hypertensive heart and chronic kidney disease with heart failure and with stage 5 chronic kidney disease, or end stage renal disease; I50.9 Heart failure, unspecified; N18.6 End stage renal disease; E78.5 Hyperlipidemia, unspecified; Z99.2 Dependence on renal dialysis; Z87.891 Personal history of nicotine dependence
CPT/HCPCS: 36430; 80053; 82550; 82962; 83605; 83735; 85025; 86850; 86900; 86901; 86920; 86922; 93005; 99285; P9016; 36415; 36416

== ENCOUNTER 2022-11-26 15:35 | Emergency (ER) | payer MEDICARE, MEDICAID ==
[2022-11-26 18:32] LABS: Hemoglobin 7.2 g/dL (12.0-16.0); Mean Corpuscular HGB CONC 33.8 g/dL (32.0-36.0); Mean Corpuscular Hemoglobin 40.3 pg (27.0-31.0); Mean Platelet Volume 7.9 fL (7.4-10.4); Platelet Count 189 10x3/uL (130-400); RBC Distribution Width 23.6 % (11.5-14.5); Red Blood Cell (RBC) Count 1.77 mill/uL (4.20-5.40); White Blood Cell (WBC) Count 7.3 10x3/uL (4.8-10.8)
[2022-11-26 18:59] LABS: Anisocytosis MODERATE=16-30 cells (100X) (0-5/hpf); Burr Cells SLIGHT = 2-5 cells (100X) (0-1/hpf); Eosinophils 1 % (0-10); Lymphocytes 7 % (21-51); MDiff Complete? YES; Macrocytosis MODERATE=16-30 cells (100X) (0-5/hpf); Monocytes 9 % (0-10); Neutrophil 81 % (42-75); Ovalocytes SLIGHT = 2-5 cells (100X) (0-1/hpf); Platelet Morphology Comment Appears Adequate; Polychromasia SLIGHT = 2-3 cells (100X) (0-2/hpf); Reactive Lymphocytes 1 % (0-10)
== END 2022-11-26 22:04 ==
LOC: ERS 15:35
DX: D64.9 Anemia, unspecified (principal); I13.2 Hypertensive heart and chronic kidney disease with heart failure and with stage 5 chronic kidney disease, or end stage renal disease; N18.6 End stage renal disease; I50.9 Heart failure, unspecified; Z87.891 Personal history of nicotine dependence; Z99.2 Dependence on renal dialysis
CPT/HCPCS: 36430; 85025; 86850; 86900; 86901; 86920; P9016; 99283

== ENCOUNTER 2022-12-24 07:52 | Observation (INO) | payer MEDICARE, MEDICAID ==
[2022-12-24 09:21] LABS: ALT (SGPT) 10 U/L (8-55); AST (SGOT) 18 U/L (5-34); Albumin 2.7 g/dL (3.4-4.8); Alkaline Phosphatase 81 U/L (40-110); Anion Gap 12 mmol/L (10-20); BUN (Urea Nitrogen) 21 mg/dL (9.8-20.1); Bilirubin, Total 0.8 mg/dL (0.2-1.2); Calc. Creatinine Clearance 0 mL/min (70-130); Calcium 8.8 mg/dL (7.8-10.44); Carbon Dioxide 29 mmol/L (23-31); Chloride 101 mmol/L (98-107); Estimated GFR 10; Globulin 3.7 g/dL (2.4-3.5); Glucose 94 mg/dL (83-110); Potassium 3.8 mmol/L (3.5-5.1); Protein, Total 6.4 g/dL (5.8-8.1); Sodium 138 mmol/L (136-145)
[2022-12-24 09:32] LABS: #Eosinphils 0.2 thou/uL (0.0-0.7); #Lymphocytes 0.8 thou/uL (1.20-3.40); #Monocytes 0.8 thou/uL (0.11-0.59); #Neutrophils 6.9 thou/uL (1.40-6.50); %Basophils 0.3 % (0.0-1.0); %Eosinophils 2.8 % (0.0-10.0); %Monocytes 9.6 % (0.0-10.0); %Neutrophils 78.4 % (42.0-75.0); Hemoglobin 7.2 g/dL (12.0-16.0); Mean Corpuscular HGB CONC 31.9 g/dL (32.0-36.0); Mean Corpuscular Hemoglobin 39.1 pg (27.0-31.0); Mean Platelet Volume 7.5 fL (7.4-10.4); Platelet Count 212 10x3/uL (130-400); RBC Distribution Width 23.9 % (11.5-14.5); Red Blood Cell (RBC) Count 1.84 mill/uL (4.20-5.40); White Blood Cell (WBC) Count 8.8 10x3/uL (4.8-10.8)
[2022-12-24 09:41] LABS: Burr Cells SLIGHT = 2-5 cells (100X) (0-1/hpf); MDiff Complete? YES; Platelet Morphology Comment Appears Adequate; Polychromasia SLIGHT = 2-3 cells (100X) (0-2/hpf); Schistocytes SLIGHT = 2-5 cells (100X) (0-1/hpf)
[2022-12-24] MEDS ORDERED: Ondansetron PF 4 MG/2 ML Vial IVP PRN (11:53)
[2022-12-24] MEDS ORDERED: Acetaminophen 325 MG TAB PO PRN (11:53)
[2022-12-24] MEDS ORDERED: Ipratropium Bromide 0.06% Nasal Inhaler 15ml EA NARE PRN (11:59)
[2022-12-24] MEDS ORDERED: Melatonin 3 MG TAB PO PRN (12:27)
[2022-12-24 13:30] VITALS: BMI 30.2
[2022-12-24] MEDS ORDERED: FLU VACC QS2022-23(65YR UP)/PF 240 MCG/0.7 ML SYRINGE IM ONE (13:30)
[2022-12-24] MEDS: Sevelamer 2.4 GM PACKET PO SCH (16:17)
[2022-12-24] MEDS: Carvedilol 6.25 MG TAB PO SCH (17:49)
[2022-12-24] MEDS ORDERED: Dextrose 50% Abboject 50 ML SYRINGE SLOW IVP PRN (18:34)
[2022-12-24] MEDS ORDERED: Dextrose 5% in Water 1,000 ML IV PRN (18:34)
[2022-12-24] MEDS ORDERED: Simethicone Chewable 80 MG TAB PO PRN (19:23)
[2022-12-24] MEDS ORDERED: Nitroglycerin 0.4 MG TAB (25 Tab Bottle) SL PRN (19:42)
[2022-12-24] MEDS ORDERED: Lidocaine 2% Viscous Solution 10 ML, Aluminum & Magnesium Hydroxide 30 ML SSW SCH (19:45)
[2022-12-24] MEDS ORDERED: Atorvastatin Calcium 40 MG TAB PO SCH (21:00)
[2022-12-24 21:13] LABS: Troponin I 0.032 ng/mL (< 0.028)
[2022-12-24] MEDS ORDERED: Promethazine HCl 12.5 MG in Sodium Chloride 0.9% 50 ML IVPB PRN (22:20)
[2022-12-25] MEDS: Sevelamer 2.4 GM PACKET PO SCH ×3 (00:12→15:01)
[2022-12-25] MEDS ORDERED: Levothyroxine Sodium 50 MCG TAB PO SCH (06:00)
[2022-12-25] MEDS ORDERED: Clopidogrel Bisulfate 75 MG TAB PO SCH (09:00)
[2022-12-25] MEDS ORDERED: Aspirin Chewable 81 MG TAB PO SCH (09:00)
[2022-12-25] MEDS ORDERED: Cholecalciferol 1,000 UNITS (25 MCG) TAB PO SCH (09:00)
[2022-12-25] MEDS ORDERED: Folic Acid 1 MG TAB PO SCH (09:00)
[2022-12-25] MEDS ORDERED: Heparin 10,000 UNITS/ 10 ML VIAL ONE (09:05)
[2022-12-25] MEDS: Carvedilol 6.25 MG TAB PO SCH (09:20)
[2022-12-25 10:12] LABS: HBSAg Index 0.24 S/CO (0-0.99); Hep B Surf Ag Non-Reactive S/CO (NonReactive)
[2022-12-25 10:32] LABS: HBSAB Concentration 14.83 mIU/mL; Hep B Surf AB Reactive (NonReactive)
[2022-12-25 12:22] VITALS: BP 149/80; TEMP 97.5
[2022-12-25 15:28] LABS: Anion Gap 10 mmol/L (10-20); BUN (Urea Nitrogen) 25 mg/dL (9.8-20.1); Calc. Creatinine Clearance 15 mL/min (70-130); Calcium 8.3 mg/dL (7.8-10.44); Carbon Dioxide 30 mmol/L (23-31); Chloride 101 mmol/L (98-107); Estimated GFR 11; Glucose 94 mg/dL (83-110); Potassium 3.5 mmol/L (3.5-5.1); Sodium 137 mmol/L (136-145)
[2022-12-25 15:54] LABS: #Eosinphils 0.2 thou/uL (0.0-0.7); #Lymphocytes 0.9 thou/uL (1.20-3.40); #Monocytes 0.5 thou/uL (0.11-0.59); #Neutrophils 5.2 thou/uL (1.40-6.50); %Basophils 0.2 % (0.0-1.0); %Eosinophils 3.1 % (0.0-10.0); %Lymphocytes 12.7 % (21.0-51.0); %Monocytes 7.9 % (0.0-10.0); %Neutrophils 76.2 % (42.0-75.0); Anisocytosis SLIGHT = 6-15 cells (100X) (0-5/hpf); Hemoglobin 8.6 g/dL (12.0-16.0); MDiff Complete? YES; Macrocytosis SLIGHT = 6-15 cells (100X) (0-5/hpf); Mean Corpuscular HGB CONC 32.9 g/dL (32.0-36.0); Mean Corpuscular Hemoglobin 35.9 pg (27.0-31.0); Mean Platelet Volume 7.8 fL (7.4-10.4); Ovalocytes SLIGHT = 2-5 cells (100X) (0-1/hpf); Platelet Count 149 10x3/uL (130-400); Platelet Morphology Comment Appears Adequate; Polychromasia SLIGHT = 2-3 cells (100X) (0-2/hpf); RBC Distribution Width 26.3 % (11.5-14.5); White Blood Cell (WBC) Count 6.8 10x3/uL (4.8-10.8)
== END 2022-12-25 20:03 | disposition home or self-care (01) ==
LOC: ERS 07:52 → T4-A 12:01
PROVIDERS: ADMIT Hospitalist; ATTEND Physician Assistant Medical
DX: I13.2 Hypertensive heart and chronic kidney disease with heart failure and with stage 5 chronic kidney disease, or end stage renal disease (principal); E11.22 Type 2 diabetes mellitus with diabetic chronic kidney disease; N18.6 End stage renal disease; I50.42 Chronic combined systolic (congestive) and diastolic (congestive) heart failure; D63.1 Anemia in chronic kidney disease; E03.9 Hypothyroidism, unspecified; E78.5 Hyperlipidemia, unspecified; M19.90 Unspecified osteoarthritis, unspecified site; M10.9 Gout, unspecified; I25.10 Atherosclerotic heart disease of native coronary artery without angina pectoris; J45.909 Unspecified asthma, uncomplicated; Z87.891 Personal history of nicotine dependence; Z79.02 Long term (current) use of antithrombotics/antiplatelets; Z79.82 Long term (current) use of aspirin; Z79.890 Hormone replacement therapy; Z79.899 Other long term (current) drug therapy; Z88.5 Allergy status to narcotic agent; Z88.8 Allergy status to other drugs, medicaments and biological substances; Z99.2 Dependence on renal dialysis; Z20.822 Contact with and (suspected) exposure to COVID-19
CPT/HCPCS: 36430; 80048; 80053; 82962 ×2; 84484; 85025 ×2; 86706; 86850; 86860; 86870 ×2; 86880; 86900; 86901; 86905; 86920; 86922; 87340; 93005; 96375 ×2; 99284; G0378 ×3; P9016; U0003; U0005; 36415; 36416; 93010; J1644; J2405; J2550

== ENCOUNTER 2023-01-31 11:06 | Emergency (ER) | payer MEDICARE, MEDICAID ==
[2023-01-31 11:44] LABS: #Eosinphils 0.1 thou/uL (0.0-0.7); #Lymphocytes 0.8 thou/uL (1.20-3.40); #Neutrophils 7.3 thou/uL (1.40-6.50); %Eosinophils 1.5 % (0.0-10.0); %Lymphocytes 8.9 % (21.0-51.0); %Monocytes 10.3 % (0.0-10.0); %Neutrophils 79.2 % (42.0-75.0); Hemoglobin 7.3 g/dL (12.0-16.0); Mean Corpuscular HGB CONC 33.9 g/dL (32.0-36.0); Mean Corpuscular Hemoglobin 38.6 pg (27.0-31.0); Platelet Count 235 10x3/uL (130-400); RBC Distribution Width 22.8 % (11.5-14.5); White Blood Cell (WBC) Count 9.2 10x3/uL (4.8-10.8)
[2023-01-31 12:03] LABS: ALT (SGPT) 11 U/L (8-55); AST (SGOT) 17 U/L (5-34); Albumin 3.1 g/dL (3.4-4.8); Alkaline Phosphatase 92 U/L (40-110); Anion Gap 14 mmol/L (10-20); BUN (Urea Nitrogen) 11 mg/dL (9.8-20.1); Bilirubin, Total 0.5 mg/dL (0.2-1.2); Calc. Creatinine Clearance 0 mL/min (70-130); Calcium 9.1 mg/dL (7.8-10.44); Carbon Dioxide 28 mmol/L (23-31); Chloride 98 mmol/L (98-107); Estimated GFR 29; Glucose 94 mg/dL (83-110); Potassium 3.6 mmol/L (3.5-5.1); Protein, Total 7.1 g/dL (5.8-8.1); Sodium 136 mmol/L (136-145)
[2023-01-31] MEDS ORDERED: Ondansetron ODT 4 MG TAB ONE (14:05)
== END 2023-01-31 15:00 | disposition home or self-care (01) ==
LOC: ERS 11:06
DX: D63.1 Anemia in chronic kidney disease (principal); I13.2 Hypertensive heart and chronic kidney disease with heart failure and with stage 5 chronic kidney disease, or end stage renal disease; E11.22 Type 2 diabetes mellitus with diabetic chronic kidney disease; N18.6 End stage renal disease; I50.9 Heart failure, unspecified; J45.909 Unspecified asthma, uncomplicated; Z99.2 Dependence on renal dialysis; Z87.891 Personal history of nicotine dependence
CPT/HCPCS: 36430; 80053; 85025; 86850; 86900; 86901; 86920; 86922; 93005; P9016; Q0162